=== PATIENT | female | born 1955 | race Caucasian/White ===

== ENCOUNTER 2017-02-08 18:03 | Inpatient (IN) | payer MEDICARE, MEDICAID ==
[~2017-02-08] VITALS: Ht 144.8 cm; Wt 95.6 kg
[2017-02-08] MEDS ORDERED: 0.9% SODIUM CHLORIDE 10 ML SYRINGE IVP PRN ×2 (18:45→22:00)
[2017-02-08] MEDS ORDERED: SODIUM CHLORIDE 0.9% 1,000 ML IV ONE (18:45)
[2017-02-08] MEDS ORDERED: ACETAMINOPHEN 1000 MG/ISO-OSM 100 ML IV ONE (18:45)
[2017-02-08 19:14] LABS: BASOPHILS # (AUTO) 0.07 K/uL (0.00-0.20); BASOPHILS % (AUTO) 0.6 % (0.0-2.0); EOSINOPHILS # (AUTO) 0.02 K/uL (0.00-0.70); EOSINOPHILS % (AUTO) 0.18 % (1.0-6.0); HEMATOCRIT 37.9 % (36-46); HEMOGLOBIN 12.4 g/dL (12.0-16.0); LYMPHOCYTES # (AUTO) 1.6 K/uL (1.0-4.8); LYMPHOCYTES % (AUTO) 12.3 % (22.0-44.0); MEAN CORPUSCULAR HEMOGLOBIN 31.1 pg (26.0-34.0); MEAN CORPUSCULAR HGB CONC 32.7 G/dL (31.0-37.0); MEAN CORPUSCULAR VOLUME 95 fL (80-100); MONOCYTES % (AUTO) 7.4 % (2.0-9.0); NEUTROPHILS # (AUTO) 10.2 K/uL (1.8-7.7); NEUTROPHILS % (AUTO) 79.5 % (40.0-70.0); PLATELET COUNT (AUTO) 333 K/uL (150-450); RED BLOOD CELL COUNT(AUTO) 3.98 MIL/uL (4.00-5.20); RED CELL DISTRIBUTION WIDTH 14.8 % (11.5-14.5); WHITE BLOOD COUNT (AUTO) 12.8 K/uL (4.5-11.0)
[2017-02-08] MEDS ORDERED: ATOR20TA86 PO (19:19)
[2017-02-08] MEDS ORDERED: THIO25 PO (19:19)
[2017-02-08] MEDS ORDERED: RISP2 PO (19:19)
[2017-02-08] MEDS ORDERED: LUBI24CA2 PO (19:19)
[2017-02-08] MEDS ORDERED: KCIT5T PO (19:19)
[2017-02-08] MEDS ORDERED: LEVO150 PO (19:19)
[2017-02-08] MEDS ORDERED: LACT30L PO (19:19)
[2017-02-08] MEDS ORDERED: HYPR15DR23 OU (19:19)
[2017-02-08] MEDS ORDERED: MIRALAX PO (19:19)
[2017-02-08] MEDS ORDERED: ASPI81 PO (19:19)
[2017-02-08] MEDS ORDERED: FLUT16H NASAL (19:19)
[2017-02-08] MEDS ORDERED: PSYL369P PO (19:19)
[2017-02-08] MEDS ORDERED: THIO50 PO (19:19)
[2017-02-08] MEDS ORDERED: GUAIF600 PO (19:19)
[2017-02-08] MEDS ORDERED: MOM30 PO (19:19)
[2017-02-08] MEDS ORDERED: LEVO25TA9 PO (19:19)
[2017-02-08] MEDS ORDERED: SERT50TA12 PO (19:19)
[2017-02-08] MEDS ORDERED: NABU500T3 PO (19:19)
[2017-02-08] MEDS ORDERED: FURO20 PO (19:19)
[2017-02-08] MEDS ORDERED: SENN8.6T90 PO (19:19)
[2017-02-08] MEDS ORDERED: DIAZ10 PO (19:19)
[2017-02-08] MEDS ORDERED: ACET-2902 PO (19:19)
[2017-02-08 19:24] LABS: ANION GAP 8 mmol/L (8-16); CALCIUM, TOTAL 9.3 mg/dL (8.8-10.5); CARBON DIOXIDE 30 mmol/L (22-29); CHLORIDE 99 mmol/L (98-107); CREATININE 0.97 mg/dL (0.60-1.30); GLOMERULAR FILTR. RATE CALC 59 mL/min (>60); POTASSIUM 4.2 mmol/L (3.5-5.1); SODIUM SERUM 137 mmol/L (136-145); UREA NITROGEN, BLOOD 20 mg/dL (7-18)
[2017-02-08 19:32] LABS: LACTIC ACID 1.3 mmol/L (0.4-2.0)
[2017-02-08 19:36] LABS: PROTHROMBIN TIME 10.8 SEC (9.4-11.6)
[2017-02-08 19:38] LABS: ALANINE AMINOTRANSFERASE 48 U/L (12-78); ALBUMIN 3.3 g/dL (3.4-5.0); ASPARTATE AMINOTRANSFERASE 22 U/L (15-37); BILIRUBIN,TOTAL 0.6 mg/dL (0.1-1.0); CREATINE KINASE, TOTAL 54 U/L (26-192); TOTAL PROTEIN, SERUM 7.5 g/dL (6.4-8.2)
[2017-02-08 19:56] LABS: B-TYPE NATRIURETIC PEPTIDE 44 pg/mL (0-100)
[2017-02-08] MEDS ORDERED: RisperiDONE 2 MG TABLET PO ONE (20:00)
[2017-02-08] MEDS ORDERED: THIORIDAZINE HCL 50 MG TABLET PO ONE (20:00)
[2017-02-08 20:42] LABS: INFLUENZA TYPE B NEGATIVE FOR TYPE B (NEGATIVE)
[2017-02-08] MEDS ORDERED: DIAZEPAM 5 MG TABLET PO ONE (21:00)
[2017-02-08 21:10] LABS: ADD UA MICROSCOPIC YES; APPEARANCE,URINE CLOUDY (CLEAR); GLUCOSE, URINE (UA) NEGATIVE (NEGATIVE); KETONES,URINE NEGATIVE (NEGATIVE); LEUKOCYTE ESTERASE ,URINE MODERATE (NEGATIVE); OCCULT BLOOD,URINE TRACE (NEGATIVE); PROTEIN,URINE NEGATIVE (NEGATIVE)
[2017-02-08 21:18] LABS: SQUAMOUS EPITHELIAL CELL,UR Few /LPF (None Seen)
[2017-02-08] MEDS ORDERED: LEVOFLOXACIN 500 MG/D5% WATER 100 ML IV ONE (21:30)
[2017-02-08] MEDS ORDERED: ACETAMINOPHEN 325 MG TABLET PO PRN (22:00)
[2017-02-08] MEDS ORDERED: ONDANSETRON HCL 4 MG/2 ML VIAL IVP PRN ×2 (22:00→22:30)
[2017-02-08] MEDS ORDERED: DIAZEPAM 5 MG TABLET PO PRN (22:30)
[2017-02-08] MEDS ORDERED: MAGNESIUM HYDROXIDE SUSPENSION 30 ML UDCUP PO PRN (22:30)
[2017-02-08] MEDS ORDERED: ALBUTEROL SULFATE 2.5 MG/0.5 ML NEB SOLUTION NEB PRN (22:30)
[2017-02-08] MEDS: HEPARIN SODIUM,PORCINE 5,000 UNITS/ML VIAL SQ SCH (23:05)
[2017-02-08] MEDS: CefTRIAXone 1 GM/DEXTROSE 50 ML IV SCH (23:05)
[2017-02-09] MEDS: ACETAMINOPHEN 325 MG TABLET PO PRN ×2 (02:07→15:50)
[2017-02-09 03:55] VITALS: BP 122/72
[2017-02-09 07:09] LABS: BASOPHILS # (AUTO) 0.08 K/uL (0.00-0.20); BASOPHILS % (AUTO) 0.5 % (0.0-2.0); EOSINOPHILS # (AUTO) 0.07 K/uL (0.00-0.70); EOSINOPHILS % (AUTO) 0.45 % (1.0-6.0); HEMATOCRIT 36.4 % (36-46); HEMOGLOBIN 11.8 g/dL (12.0-16.0); LYMPHOCYTES # (AUTO) 2.3 K/uL (1.0-4.8); LYMPHOCYTES % (AUTO) 13.9 % (22.0-44.0); MEAN CORPUSCULAR HEMOGLOBIN 30.8 pg (26.0-34.0); MEAN CORPUSCULAR HGB CONC 32.3 G/dL (31.0-37.0); MEAN CORPUSCULAR VOLUME 95 fL (80-100); MONOCYTES # (AUTO) 1.5 K/uL (0.1-1.0); MONOCYTES % (AUTO) 9.4 % (2.0-9.0); NEUTROPHILS # (AUTO) 12.4 K/uL (1.8-7.7); NEUTROPHILS % (AUTO) 75.8 % (40.0-70.0); PLATELET COUNT (AUTO) 267 K/uL (150-450); RED BLOOD CELL COUNT(AUTO) 3.82 MIL/uL (4.00-5.20); RED CELL DISTRIBUTION WIDTH 14.6 % (11.5-14.5); WHITE BLOOD COUNT (AUTO) 16.3 K/uL (4.5-11.0)
[2017-02-09 07:42] LABS: ALBUMIN 2.9 g/dL (3.4-5.0); BILIRUBIN,TOTAL 0.5 mg/dL (0.1-1.0); CALCIUM, TOTAL 8.8 mg/dL (8.8-10.5); POTASSIUM 4.2 mmol/L (3.5-5.1); THYROID STIMULATING HORMONE 1.74 uIU/mL (0.36-3.74); TOTAL PROTEIN, SERUM 6.8 g/dL (6.4-8.2)
[2017-02-09 07:48] VITALS: BP 125/66
[2017-02-09] MEDS: HEPARIN SODIUM,PORCINE 5,000 UNITS/ML VIAL SQ SCH ×3 (08:30→23:35)
[2017-02-09] MEDS: DOCUSATE SODIUM 100 MG CAPSULE PO SCH ×2 (08:31→19:50)
[2017-02-09] MEDS: ASPIRIN 81 MG CHEWABLE TABLET PO SCH (08:31)
[2017-02-09] MEDS: PANTOPRAZOLE SODIUM 40 MG DR TABLET PO SCH (08:31)
[2017-02-09] MEDS ORDERED: SODIUM PHOS/SODIUM BIPHOS 133 ML ENEMA PR PRN (09:00)
[2017-02-09] MEDS ORDERED: DIAZEPAM 5 MG TABLET PO PRN (09:00)
[2017-02-09] MEDS: THIORIDAZINE HCL 25 MG TABLET PO SCH ×2 (10:53→18:13)
[2017-02-09] MEDS: SERTRALINE HCL 50 MG TABLET PO SCH (10:54)
[2017-02-09 12:00] VITALS: BP 110/59
[2017-02-09 15:23] VITALS: BP 114/55
[2017-02-09] MEDS: DIAZEPAM 5 MG TABLET PO SCH (19:51)
[2017-02-09] MEDS: RisperiDONE 2 MG TABLET PO SCH (19:51)
[2017-02-09] MEDS: THIORIDAZINE HCL 50 MG TABLET PO SCH (19:53)
[2017-02-09 20:24] VITALS: BP 113/54
[2017-02-09] MEDS ORDERED: SODIUM CHLORIDE 0.9% 500 ML IV ONE (23:31)
[2017-02-09] MEDS: CefTRIAXone 1 GM/DEXTROSE 50 ML IV SCH (23:34)
[2017-02-10] VITALS (7 sets, daily range): BP systolic 101–142; BP diastolic 53–78
[2017-02-10] MEDS: LEVOTHYROXINE SODIUM 25 MCG TABLET PO SCH (07:08)
[2017-02-10] MEDS: PANTOPRAZOLE SODIUM 40 MG DR TABLET PO SCH (09:33)
[2017-02-10] MEDS: HEPARIN SODIUM,PORCINE 5,000 UNITS/ML VIAL SQ SCH ×2 (09:33→17:13)
[2017-02-10] MEDS: ASPIRIN 81 MG CHEWABLE TABLET PO SCH (09:34)
[2017-02-10] MEDS: DOCUSATE SODIUM 100 MG CAPSULE PO SCH ×2 (09:34→21:01)
[2017-02-10] MEDS: THIORIDAZINE HCL 25 MG TABLET PO SCH ×2 (09:35→17:14)
[2017-02-10] MEDS: SERTRALINE HCL 50 MG TABLET PO SCH (09:35)
[2017-02-10] MEDS ORDERED: BARIUM SULFATE 0.1% SUSPENSION 450 ML BOTTLE ONE (13:38)
[2017-02-10] MEDS ORDERED: IOVERSOL 350 MG/ML 150 ML VIAL ONE (13:38)
[2017-02-10] MEDS: RisperiDONE 2 MG TABLET PO SCH (21:01)
[2017-02-10] MEDS: DIAZEPAM 5 MG TABLET PO SCH (21:01)
[2017-02-10] MEDS: THIORIDAZINE HCL 50 MG TABLET PO SCH (21:02)
[2017-02-10] MEDS ORDERED: SODIUM CHLORIDE 0.9% 500 ML IV ONE (22:39)
[2017-02-10] MEDS: CefTRIAXone 1 GM/DEXTROSE 50 ML IV SCH (23:02)
[2017-02-11] MEDS: HEPARIN SODIUM,PORCINE 5,000 UNITS/ML VIAL SQ SCH (00:05)
[2017-02-11 04:53] VITALS: BP 108/56
[2017-02-11 06:26] LABS: BASOPHILS % (AUTO) 0.5 % (0.0-2.0); HEMATOCRIT 28.5 % (36-46); HEMOGLOBIN 9.5 g/dL (12.0-16.0); LYMPHOCYTES # (AUTO) 2.9 K/uL (1.0-4.8); LYMPHOCYTES % (AUTO) 29.9 % (22.0-44.0); MEAN CORPUSCULAR HEMOGLOBIN 31.4 pg (26.0-34.0); MEAN CORPUSCULAR HGB CONC 33.4 G/dL (31.0-37.0); MEAN CORPUSCULAR VOLUME 94 fL (80-100); MONOCYTES # (AUTO) 1.1 K/uL (0.1-1.0); MONOCYTES % (AUTO) 11.2 % (2.0-9.0); NEUTROPHILS # (AUTO) 5.5 K/uL (1.8-7.7); NEUTROPHILS % (AUTO) 56.4 % (40.0-70.0); PLATELET COUNT (AUTO) 325 K/uL (150-450); RED BLOOD CELL COUNT(AUTO) 3.03 MIL/uL (4.00-5.20); RED CELL DISTRIBUTION WIDTH 15.2 % (11.5-14.5); WHITE BLOOD COUNT (AUTO) 9.8 K/uL (4.5-11.0)
[2017-02-11] MEDS: LEVOTHYROXINE SODIUM 25 MCG TABLET PO SCH (06:27)
[2017-02-11 06:51] LABS: ANION GAP 7 mmol/L (8-16); CALCIUM, TOTAL 8.4 mg/dL (8.8-10.5); CARBON DIOXIDE 29 mmol/L (22-29); CHLORIDE 105 mmol/L (98-107); CREATININE 0.94 mg/dL (0.60-1.30); GLOMERULAR FILTR. RATE CALC > 60 mL/min (>60); POTASSIUM 3.5 mmol/L (3.5-5.1); SODIUM SERUM 141 mmol/L (136-145); UREA NITROGEN, BLOOD 18 mg/dL (7-18)
[2017-02-11] MEDS ORDERED: IOVERSOL 350 MG/ML 100 ML VIAL ONE (07:12)
[2017-02-11] MEDS ORDERED: BARIUM SULFATE 0.1% SUSPENSION 450 ML BOTTLE ONE (07:12)
[2017-02-11 08:04] VITALS: BP 117/77
[2017-02-11] MEDS: ASPIRIN 81 MG CHEWABLE TABLET PO SCH (09:50)
[2017-02-11] MEDS: DOCUSATE SODIUM 100 MG CAPSULE PO SCH (09:50)
[2017-02-11] MEDS: PANTOPRAZOLE SODIUM 40 MG DR TABLET PO SCH (09:50)
[2017-02-11] MEDS: THIORIDAZINE HCL 25 MG TABLET PO SCH (10:26)
[2017-02-11] MEDS: SERTRALINE HCL 50 MG TABLET PO SCH (10:27)
[2017-02-11 11:27] VITALS: BP 133/69
[2017-02-12] MEDS ORDERED: FUROSEMIDE 20 MG TABLET PO SCH (09:00)
== END 2017-02-11 13:50 | disposition short-term general hospital (02) | DRG 872 ==
LOC: EMS 18:05 → 5S 02-09 02:24 → 6N 02-10 22:15
PROVIDERS: ADMIT Internal Medicine; ATTEND Internal Medicine
PROC: 5A09457 Assistance with Respiratory Ventilation, 24-96 Consecutive Hours, Continuous Positive Airway Pressure (ICD-10-PCS; principal; 2017-02-09)
DX: A41.9 Sepsis, unspecified organism (principal); E44.0 Moderate protein-calorie malnutrition; F20.9 Schizophrenia, unspecified; Z68.42 Body mass index [BMI] 45.0-49.9, adult; N39.0 Urinary tract infection, site not specified; E03.9 Hypothyroidism, unspecified; G80.9 Cerebral palsy, unspecified; E66.9 Obesity, unspecified; D64.9 Anemia, unspecified; G47.33 Obstructive sleep apnea (adult) (pediatric); Z87.440 Personal history of urinary (tract) infections; Z79.82 Long term (current) use of aspirin; Z79.899 Other long term (current) drug therapy
CPT/HCPCS: 51702; 83605; 84443; 87040; 87081; 87086; 87804; 93005; 96365; 96367; 97161; 99285; J0131; J0696; J1644; J1956; J7030; J7040

== ENCOUNTER → 2019-05-05 | Outpatient (CLI) | payer MEDICARE, MEDICAID ==
[~2019-05-05] MED LIST: ACET-3207 PO; ASPI-728 PO; ATOR20TA86 PO; BISA10SU11 PR; CALC-1238 PO; CARB15DR3 OP; CRAN450T10 PO; DIAZ10 PO; DOCU-275 PO; FLAX100030 PO; FLUT16H NASAL; FURO20 PO; GUAIF600 PO; HYPR15DR23 OU; KCIT5T PO; LACT1TAB14 PO; LACT30L PO; LECI12002 PO; LEVO150 PO; LEVO15TA5 PO; LEVO25TA9 PO; LINA145C PO; LUBI24CA2 PO; MAGOX PO; METO25XL PO; MIRALAX PO; MOM30 PO; MONT4GRA2 PO; MULT-723 PO; NABU500T3 PO; POLY250020 PO; PROT54LI PO; PSYL369P PO; RISP2 PO; SENN8.6T90 PO; SERT50TA12 PO; THIO25 PO; THIO50 PO
== END | disposition home or self-care (01) ==
LOC: HBOWC 09:43
PROVIDERS: ATTEND Surgery Plastic and Reconstructive Surgery
DX: S31.819D Unspecified open wound of right buttock, subsequent encounter (principal); L22 Diaper dermatitis; R19.5 Other fecal abnormalities; G80.9 Cerebral palsy, unspecified; F20.9 Schizophrenia, unspecified; M81.0 Age-related osteoporosis without current pathological fracture; X58.XXXD Exposure to other specified factors, subsequent encounter